=== PATIENT | female | born 1930 | race African-American/Black ===

== ENCOUNTER 2018-09-06 09:38 | Emergency (ER) | payer MEDICARE ==
[~2018-09-06] VITALS: Ht 162.6 cm; Wt 73.0 kg
[2018-09-06] MEDS ORDERED: IBUPROFEN 600MG TABLET PO ONE (10:15)
[2018-09-06] MEDS ORDERED: MORPHINE SULFATE 10 MG/ML CPJ IM ONE (13:00)
[2018-09-06] MEDS ORDERED: MORPHINE SULFATE 4 MG/ML CPJ (NOT FOR IM USE) IV ONE (15:45)
[2018-09-06 23:03] VITALS: BP 117/44
== END 2018-09-06 23:07 | disposition home or self-care (01) ==
LOC: ER 09:38
DX: S82.251A Displaced comminuted fracture of shaft of right tibia, initial encounter for closed fracture (principal); S30.0XXA Contusion of lower back and pelvis, initial encounter; I70.0 Atherosclerosis of aorta; E11.9 Type 2 diabetes mellitus without complications; I10 Essential (primary) hypertension; D64.9 Anemia, unspecified; M81.0 Age-related osteoporosis without current pathological fracture; W18.39XA Other fall on same level, initial encounter; Y93.89 Activity, other specified; Y92.89 Other specified places as the place of occurrence of the external cause; Y99.8 Other external cause status
CPT/HCPCS: 29505; 72192; 73502; 73560; 73600; 73610; 82962; 96372; 96374; 99284; J2270; Z7610

== ENCOUNTER 2021-04-13 18:11 | Inpatient (IN) | payer MEDICARE, MEDICAID ==
[~2021-04-13] VITALS: Ht 162.6 cm; Wt 71.2 kg
[2021-04-13] MEDS ORDERED: SODIUM CHLORIDE 0.9% 1000ML BAG (SEPSIS BOLUS) IV ONE (18:30)
[2021-04-13 19:12] LABS: BASOPHILS % 0.5 % (0.0-2.0); EOSINOPHILS % 0.6 % (0.0-5.0); HEMATOCRIT. 38.9 % (36.0-48.0); HEMOGLOBIN. 11.6 g/dL (12.0-16.0); LYMPHOCYTES % 40.4 % (20.0-50.0); MEAN CORPUSCULAR HEMOGLOBIN 27.3 pg (28.0-32.0); MEAN CORPUSCULAR VOLUME 91.6 fL (81.0-99.0); MEAN PLATELET VOLUME 7.5 fl (7.4-10.4); NEUTROPHILS % 56.5 % (40.0-76.0); PLATELET 360 x1000/uL (130-400); RED BLOOD CELL COUNT 4.25 mill/uL (4.2-5.4); RED CELL DISTRIBUTION WIDTH 16.7 % (11.6-14.6)
[2021-04-13 19:15] LABS: CHLORIDE 110 mEq/L (98-107)
[2021-04-13] MEDS ORDERED: PIPERACILLIN/TAZ 3.375G PREMIX 50 ML IV ONE (20:00)
[2021-04-13] MEDS ORDERED: VANCOMYCIN 1 G PREMIX 200 ML IV ONE (20:00)
[2021-04-13] MEDS ORDERED: SODIUM CHLORIDE 0.9% 1,000 ML IV ONE (20:15)
[2021-04-13] MEDS ORDERED: ACETAMINOPHEN 650MG SUPP PR ONE (20:15)
[2021-04-13 22:32] LABS: CLARITY URINE CLOUDY (CLEAR); COLOR URINE YELLOW (YELLOW); KETONES URINE NEGATIVE (NEGATIVE); LEUKOCYTE ESTERASE URINE TRACE (NEGATIVE); NITRITE URINE NEGATIVE (NEGATIVE); OCCULT BLOOD URINE 2+ (NEGATIVE); PROTEIN URINE 3+ (NEGATIVE); SPECIFIC GRAVITY URINE 1.025 (1.005-1.030); UROBILINOGEN URINE 0.2 E.U./dL (0.2-1.0)
[2021-04-13 22:53] LABS: BG BASE EXCESS -6.2 mmol/L (-2.0-2.0); BG DEOXYHEMOGLOBIN 0.8 % (0.0-5.0); BG FRACTION INSPIRED OXYGEN 44; BG HCO3 ACT 20.8 mmol/L (22.0-26.0); BG METHEMOGLOBIN 0.3 % (0.0-1.5); BG OXYGEN SATURATION 99.2 % (92.0-98.5); BG OXYHEMOGLOBIN 97.9 % (94.0-97.0); BG PCO2 47.7 mmHg (35.0-45.0); BG PH 7.258 (7.350-7.450); BG PO2 151.2 mmHg (75.0-100.0); BG SAMPLE SITE LEFT RADIAL; BG TOTAL HEMOGLOBIN 11.4 g/dL (12.0-18.0)
[2021-04-13] MEDS ORDERED: MAGNESIUM/ALUMINUM HYDROXIDE/SIMETHICONE 30ML UDC PO PRN (23:15)
[2021-04-13] MEDS ORDERED: HYDRALAZINE 20MG/ML VIAL IV PRN (23:15)
[2021-04-13] MEDS ORDERED: DIPHENHYDRAMINE 50MG/ML VIAL IV PRN (23:15)
[2021-04-13] MEDS ORDERED: ONDANSETRON HCL 4MG/2ML INJ IV PRN (23:15)
[2021-04-13] MEDS ORDERED: DEXTROSE 50% WATER 50ML SYRINGE IV PRN (23:15)
[2021-04-13] MEDS ORDERED: ACETAMINOPHEN 325MG TABLET PO PRN (23:15)
[2021-04-13] MEDS: SODIUM CHLORIDE 0.9% 1,000 ML IV SCH (23:15)
[2021-04-14] VITALS (12 sets, daily range): BP systolic 117–158; BP diastolic 56–123
[2021-04-14] MEDS ORDERED: IPRATROPIUM BROMIDE (0.02%) 0.5MG/2.5ML NEB HHN PRN (01:30)
[2021-04-14] MEDS ORDERED: LEVOFLOXACIN 500MG PREMIX 100 ML IV SCH (03:00)
[2021-04-14] MEDS: KETOROLAC 30MG/ML VIAL IV PRN ×2 (05:39→16:03)
[2021-04-14] MEDS: INSULIN LISPRO 100 UNITS/ML SUBCUT SCH ×4 (08:00→22:04)
[2021-04-14] MEDS: BLOOD SUGAR DIAGNOSTIC STRIP TEST SCH ×4 (08:17→21:38)
[2021-04-14] MEDS: ENOXAPARIN 40MG/0.4ML SYR SUBCUT SCH (08:34)
[2021-04-14] MEDS: ASPIRIN 81MG EC TABLET PO SCH (08:34)
[2021-04-14] MEDS: CHOLECALCIFEROL (D3) 1000 UNIT TABLET PO SCH (08:34)
[2021-04-14] MEDS: OMEPRAZOLE 20MG CAPSULE EXTENDED RELEASE PO SCH ×2 (08:35→21:00)
[2021-04-14] MEDS: BENAZEPRIL 10MG TABLET PO SCH (08:37)
[2021-04-14] MEDS ORDERED: MEROPENEM 1,000 MG in SODIUM CHLORIDE 0.9% 100 ML IV SCH ×2 (09:00)
[2021-04-14 10:19] LABS: CHLORIDE 114 mEq/L (98-107)
[2021-04-14 10:20] LABS: HEMATOCRIT. 32.2 % (36.0-48.0); HEMOGLOBIN. 9.8 g/dL (12.0-16.0); MEAN CORPUSCULAR VOLUME 88.5 fL (81.0-99.0); MEAN PLATELET VOLUME 7.7 fl (7.4-10.4); PLATELET 303 x1000/uL (130-400); RED BLOOD CELL COUNT 3.64 mill/uL (4.2-5.4); RED CELL DISTRIBUTION WIDTH 16.2 % (11.6-14.6)
[2021-04-14 10:26] LABS: PHOSPHORUS 2.7 mg/dL (2.5-4.9)
[2021-04-14 15:02] LABS: PLATELET ESTIMATE NORMAL
[2021-04-14] MEDS: IPRATROPIUM BROMIDE (0.02%) 0.5MG/2.5ML NEB HHN SCH ×2 (16:45→20:52)
[2021-04-14] MEDS: HYDRALAZINE 20MG/ML VIAL IV SCH (17:52)
[2021-04-14] MEDS ORDERED: VANCOMYCIN 1250MG in DEXTROSE 5% WATER 250ML IV NR (18:00)
[2021-04-14] MEDS: SODIUM CHLORIDE 0.9% 1,000 ML IV SCH (18:37)
[2021-04-14] MEDS: ATORVASTATIN CALCIUM 20MG TABLET PO SCH (21:00)
[2021-04-14] MEDS: MEROPENEM 1000MG in NORMAL SALINE 100ML IV SCH (21:37)
[2021-04-15] VITALS (10 sets, daily range): BP systolic 121–169; BP diastolic 51–89
[2021-04-15] MEDS: HYDRALAZINE 20MG/ML VIAL IV SCH ×4 (00:36→16:49)
[2021-04-15] MEDS: IPRATROPIUM BROMIDE (0.02%) 0.5MG/2.5ML NEB HHN SCH ×4 (02:31→20:49)
[2021-04-15] MEDS: LEVOFLOXACIN 250MG PREMIX 50 ML IV SCH (06:02)
[2021-04-15] MEDS: KETOROLAC 30MG/ML VIAL IV PRN (06:40)
[2021-04-15] MEDS: OMEPRAZOLE 20MG CAPSULE EXTENDED RELEASE PO SCH ×2 (07:30→21:00)
[2021-04-15] MEDS: BLOOD SUGAR DIAGNOSTIC STRIP TEST SCH ×4 (07:30→21:00)
[2021-04-15] MEDS: INSULIN LISPRO 100 UNITS/ML SUBCUT SCH ×4 (08:00→21:00)
[2021-04-15] MEDS: BENAZEPRIL 10MG TABLET PO SCH (09:00)
[2021-04-15] MEDS: ASPIRIN 81MG EC TABLET PO SCH (09:00)
[2021-04-15] MEDS: CHOLECALCIFEROL (D3) 1000 UNIT TABLET PO SCH (09:00)
[2021-04-15 09:21] LABS: BASOPHILS % 0.3 % (0.0-2.0); EOSINOPHILS % 0.1 % (0.0-5.0); HEMATOCRIT. 31.1 % (36.0-48.0); LYMPHOCYTES % 26.5 % (20.0-50.0); MEAN CORPUSCULAR HEMOGLOBIN 27.9 pg (28.0-32.0); MEAN CORPUSCULAR VOLUME 86.8 fL (81.0-99.0); MEAN PLATELET VOLUME 7.9 fl (7.4-10.4); MONOCYTES % 2.8 % (2.0-8.0); NEUTROPHILS % 70.3 % (40.0-76.0); PLATELET 281 x1000/uL (130-400); RED BLOOD CELL COUNT 3.59 mill/uL (4.2-5.4); RED CELL DISTRIBUTION WIDTH 16.3 % (11.6-14.6)
[2021-04-15 09:28] LABS: D-DIMER 2.38 mg/L FEU (<0.50); INR 1.1
[2021-04-15 09:31] LABS: CHLORIDE 118 mEq/L (98-107)
[2021-04-15] MEDS: ENOXAPARIN 40MG/0.4ML SYR SUBCUT SCH (10:54)
[2021-04-15] MEDS: MEROPENEM 1000MG in NORMAL SALINE 100ML IV SCH ×2 (10:56→22:34)
[2021-04-15] MEDS: SODIUM CHLORIDE 0.9% 1,000 ML IV SCH (15:15)
[2021-04-15] MEDS: VANCOMYCIN 1 G PREMIX 200 ML IV SCH (16:48)
[2021-04-15] MEDS: ATORVASTATIN CALCIUM 20MG TABLET PO SCH (21:00)
[2021-04-16] VITALS (12 sets, daily range): BP systolic 105–165; BP diastolic 61–89
[2021-04-16] MEDS: HYDRALAZINE 20MG/ML VIAL IV SCH ×4 (00:43→18:11)
[2021-04-16] MEDS: DEXT 5%/0.2% NACL 1,000 ML IV SCH ×2 (01:32→14:58)
[2021-04-16] MEDS: IPRATROPIUM BROMIDE (0.02%) 0.5MG/2.5ML NEB HHN SCH ×4 (02:05→21:05)
[2021-04-16] MEDS: LEVOFLOXACIN 250MG PREMIX 50 ML IV SCH (06:01)
[2021-04-16] MEDS: OMEPRAZOLE 20MG CAPSULE EXTENDED RELEASE PO SCH ×2 (07:30→20:49)
[2021-04-16] MEDS: BLOOD SUGAR DIAGNOSTIC STRIP TEST SCH ×4 (07:42→21:27)
[2021-04-16] MEDS: INSULIN LISPRO 100 UNITS/ML SUBCUT SCH ×4 (08:00→21:00)
[2021-04-16] MEDS: BENAZEPRIL 10MG TABLET PO SCH (09:00)
[2021-04-16] MEDS: ENOXAPARIN 40MG/0.4ML SYR SUBCUT SCH (09:00)
[2021-04-16] MEDS: ASPIRIN 81MG EC TABLET PO SCH (09:00)
[2021-04-16] MEDS: CHOLECALCIFEROL (D3) 1000 UNIT TABLET PO SCH (09:00)
[2021-04-16] MEDS: MEROPENEM 1000MG in NORMAL SALINE 100ML IV SCH ×2 (09:13→20:35)
[2021-04-16] MEDS ORDERED: DILTIAZEM HCL 5MG/ML 5ML VIAL IV SCH (10:00)
[2021-04-16 12:53] LABS: BASOPHILS % 0.5 % (0.0-2.0); EOSINOPHILS % 0.6 % (0.0-5.0); HEMATOCRIT. 32.3 % (36.0-48.0); HEMOGLOBIN. 10.1 g/dL (12.0-16.0); LYMPHOCYTES % 22.7 % (20.0-50.0); MEAN CORPUSCULAR HEMOGLOBIN 27.7 pg (28.0-32.0); MEAN PLATELET VOLUME 8.4 fl (7.4-10.4); MONOCYTES % 3.6 % (2.0-8.0); NEUTROPHILS % 72.6 % (40.0-76.0); PLATELET 279 x1000/uL (130-400); RED BLOOD CELL COUNT 3.65 mill/uL (4.2-5.4); RED CELL DISTRIBUTION WIDTH 17.3 % (11.6-14.6)
[2021-04-16 12:57] LABS: MEAN CORPUSCULAR VOLUME 88.6 fL (81.0-99.0)
[2021-04-16] MEDS: DILTIAZEM HCL 5MG/ML 5ML VIAL IV SCH ×2 (13:51→20:34)
[2021-04-16] MEDS: KETOROLAC 30MG/ML VIAL IV PRN (13:52)
[2021-04-16] MEDS: VANCOMYCIN 1 G PREMIX 200 ML IV SCH (18:11)
[2021-04-16 18:52] LABS: BG BASE EXCESS -1.1 mmol/L (-2.0-2.0); BG CARBOXYHEMOGLOBIN 0.3 % (0.5-1.5); BG DEOXYHEMOGLOBIN 0.3 % (0.0-5.0); BG FRACTION INSPIRED OXYGEN 100; BG HCO3 ACT 23.5 mmol/L (22.0-26.0); BG METHEMOGLOBIN 0.3 % (0.0-1.5); BG OXYGEN SATURATION 99.7 % (92.0-98.5); BG OXYHEMOGLOBIN 99.1 % (94.0-97.0); BG PCO2 38.6 mmHg (35.0-45.0); BG PH 7.402 (7.350-7.450); BG PO2 558.3 mmHg (75.0-100.0); BG SAMPLE SITE RIGHT RADIAL; BG TOTAL HEMOGLOBIN 9.9 g/dL (12.0-18.0); BG VENT MODE MASK - BIPAP
[2021-04-16 19:51] LABS: TOTAL IRON BINDING CAPACITY 376 ug/dL (250-450)
[2021-04-16 20:11] LABS: FOLIC ACID (FOLATE) SERUM 8.1 ng/mL (>5.38)
[2021-04-16] MEDS: ATORVASTATIN CALCIUM 20MG TABLET PO SCH (20:37)
[2021-04-16] MEDS: GUAIFENESIN 600MG ER TABLET PO SCH (21:05)
[2021-04-16] MEDS: ACETYLCYSTEINE 100MG/ML 10% VIAL 4ML INH SCH (21:50)
[2021-04-17] VITALS (11 sets, daily range): BP systolic 103–154; BP diastolic 33–110
[2021-04-17] MEDS: HYDRALAZINE 20MG/ML VIAL IV SCH ×3 (00:01→13:05)
[2021-04-17] MEDS: ACETYLCYSTEINE 100MG/ML 10% VIAL 4ML INH SCH ×3 (00:58→13:52)
[2021-04-17] MEDS: IPRATROPIUM BROMIDE (0.02%) 0.5MG/2.5ML NEB HHN SCH ×4 (00:58→21:06)
[2021-04-17] MEDS: DILTIAZEM HCL 5MG/ML 5ML VIAL IV SCH ×3 (05:23→13:04)
[2021-04-17 07:17] LABS: HEMATOCRIT. 32.6 % (36.0-48.0); HEMOGLOBIN. 10.6 g/dL (12.0-16.0); MEAN CORPUSCULAR HEMOGLOBIN 28.8 pg (28.0-32.0); MEAN CORPUSCULAR VOLUME 88.9 fL (81.0-99.0); MEAN PLATELET VOLUME 8.8 fl (7.4-10.4); PLATELET 261 x1000/uL (130-400); RED BLOOD CELL COUNT 3.67 mill/uL (4.2-5.4); RED CELL DISTRIBUTION WIDTH 17.4 % (11.6-14.6)
[2021-04-17 07:55] LABS: CHLORIDE 117 mEq/L (98-107)
[2021-04-17] MEDS: BLOOD SUGAR DIAGNOSTIC STRIP TEST SCH ×4 (07:56→20:54)
[2021-04-17 08:04] LABS: CREATINE KINASE 110 IU/L (26-192); T4 FREE 1.42 ng/dL (0.76-1.46)
[2021-04-17] MEDS: DEXT 5%/0.2% NACL 1,000 ML IV SCH (08:33)
[2021-04-17] MEDS: KETOROLAC 30MG/ML VIAL IV PRN ×3 (08:34→20:03)
[2021-04-17] MEDS: OMEPRAZOLE 20MG CAPSULE EXTENDED RELEASE PO SCH ×3 (08:34→21:00)
[2021-04-17] MEDS: BENAZEPRIL 10MG TABLET PO SCH (08:35)
[2021-04-17] MEDS: CHOLECALCIFEROL (D3) 1000 UNIT TABLET PO SCH (08:35)
[2021-04-17] MEDS ORDERED: LIDOCAINE HCL 1% 10 MG/ML 10ML VIAL ONE (08:35)
[2021-04-17] MEDS: MEROPENEM 1000MG in NORMAL SALINE 100ML IV SCH (10:12)
[2021-04-17] MEDS: ASPIRIN 81MG EC TABLET PO SCH (10:16)
[2021-04-17] MEDS: INSULIN LISPRO 100 UNITS/ML SUBCUT SCH ×4 (10:16→21:00)
[2021-04-17] MEDS: GUAIFENESIN 600MG ER TABLET PO SCH ×3 (10:16→21:00)
[2021-04-17] MEDS: ENOXAPARIN 40MG/0.4ML SYR SUBCUT SCH (10:17)
[2021-04-17] MEDS ORDERED: VANCOMYCIN 750 MG PREMIX 150 ML IV SCH (14:00)
[2021-04-17] MEDS: DILTIAZEM HCL 60MG TABLET NG SCH ×2 (17:13→23:09)
[2021-04-17] MEDS: CEFEPIME 1,000 MG in DEXTROSE 5% WATER 50 ML IV SCH (20:53)
[2021-04-17] MEDS: METRONIDAZOLE 500MG TABLET PO SCH (20:53)
[2021-04-17] MEDS: ATORVASTATIN CALCIUM 20MG TABLET PO SCH (20:54)
[2021-04-17 20:59] LABS: PLATELET ESTIMATE NORMAL
[2021-04-18] VITALS (12 sets, daily range): BP systolic 104–143; BP diastolic 54–87
[2021-04-18] MEDS: ACETYLCYSTEINE 100MG/ML 10% VIAL 4ML INH SCH ×4 (01:58→21:02)
[2021-04-18] MEDS: IPRATROPIUM BROMIDE (0.02%) 0.5MG/2.5ML NEB HHN SCH ×4 (01:58→21:02)
[2021-04-18] MEDS: KETOROLAC 30MG/ML VIAL IV PRN ×4 (02:14→17:40)
[2021-04-18] MEDS: DEXT 5%/0.2% NACL 1,000 ML IV SCH (02:15)
[2021-04-18] MEDS: DILTIAZEM HCL 60MG TABLET NG SCH ×4 (05:26→23:58)
[2021-04-18 06:43] LABS: BASOPHILS % 0.3 % (0.0-2.0); HEMATOCRIT. 27.9 % (36.0-48.0); HEMOGLOBIN. 8.9 g/dL (12.0-16.0); LYMPHOCYTES % 32.8 % (20.0-50.0); MEAN CORPUSCULAR HEMOGLOBIN 27.4 pg (28.0-32.0); MEAN CORPUSCULAR VOLUME 85.5 fL (81.0-99.0); MEAN PLATELET VOLUME 8.7 fl (7.4-10.4); MONOCYTES % 5.9 % (2.0-8.0); PLATELET 239 x1000/uL (130-400); RED BLOOD CELL COUNT 3.26 mill/uL (4.2-5.4); RED CELL DISTRIBUTION WIDTH 16.1 % (11.6-14.6)
[2021-04-18 06:56] LABS: CHLORIDE 114 mEq/L (98-107)
[2021-04-18] MEDS: LANSOPRAZOLE 30MG DR CAPSULE GT SCH (07:36)
[2021-04-18] MEDS: GUAIFENESIN 200MG/10ML SUGAR FREE UDC GT SCH ×5 (07:36→22:49)
[2021-04-18] MEDS: INSULIN LISPRO 100 UNITS/ML SUBCUT SCH ×4 (07:36→20:33)
[2021-04-18] MEDS: BLOOD SUGAR DIAGNOSTIC STRIP TEST SCH ×4 (07:36→20:32)
[2021-04-18] MEDS: CEFEPIME 1,000 MG in DEXTROSE 5% WATER 50 ML IV SCH ×2 (09:06→20:23)
[2021-04-18] MEDS: ENOXAPARIN 40MG/0.4ML SYR SUBCUT SCH (09:07)
[2021-04-18] MEDS: BENAZEPRIL 10MG TABLET NG SCH (09:07)
[2021-04-18] MEDS: CHOLECALCIFEROL (D3) 1000 UNIT TABLET PO SCH (09:08)
[2021-04-18] MEDS: METRONIDAZOLE 500MG TABLET PO SCH ×2 (09:08→20:22)
[2021-04-18] MEDS: ASPIRIN 81MG EC TABLET PO SCH (09:08)
[2021-04-18] MEDS: ATORVASTATIN CALCIUM 20MG TABLET PO SCH (20:22)
[2021-04-19] VITALS (12 sets, daily range): BP systolic 99–155; BP diastolic 43–92
[2021-04-19] MEDS: IPRATROPIUM BROMIDE (0.02%) 0.5MG/2.5ML NEB HHN SCH ×4 (00:41→20:50)
[2021-04-19] MEDS: DEXT 5%/0.2% NACL 1,000 ML IV SCH ×2 (01:11→20:24)
[2021-04-19] MEDS: ACETAMINOPHEN 325MG TABLET PO PRN ×2 (02:06→20:25)
[2021-04-19] MEDS: GUAIFENESIN 200MG/10ML SUGAR FREE UDC GT SCH ×6 (02:06→23:49)
[2021-04-19] MEDS: DILTIAZEM HCL 60MG TABLET NG SCH ×4 (06:01→23:50)
[2021-04-19] MEDS: CEFEPIME 1,000 MG in DEXTROSE 5% WATER 50 ML IV SCH ×2 (08:08→20:25)
[2021-04-19] MEDS: LANSOPRAZOLE 30MG DR CAPSULE GT SCH (08:08)
[2021-04-19] MEDS: METRONIDAZOLE 500MG TABLET PO SCH ×2 (08:08→20:24)
[2021-04-19] MEDS: ASPIRIN 81MG EC TABLET PO SCH (08:08)
[2021-04-19] MEDS: CHOLECALCIFEROL (D3) 1000 UNIT TABLET PO SCH (08:08)
[2021-04-19] MEDS: ENOXAPARIN 40MG/0.4ML SYR SUBCUT SCH (08:09)
[2021-04-19] MEDS: BENAZEPRIL 10MG TABLET NG SCH (08:09)
[2021-04-19] MEDS: INSULIN LISPRO 100 UNITS/ML SUBCUT SCH ×4 (08:10→22:00)
[2021-04-19] MEDS: BLOOD SUGAR DIAGNOSTIC STRIP TEST SCH ×4 (08:10→21:00)
[2021-04-19] MEDS: ACETYLCYSTEINE 100MG/ML 10% VIAL 4ML INH SCH ×2 (08:51→16:00)
[2021-04-19 09:37] LABS: BASOPHILS % 0.5 % (0.0-2.0); EOSINOPHILS % 3.4 % (0.0-5.0); HEMATOCRIT. 26.7 % (36.0-48.0); HEMOGLOBIN. 8.8 g/dL (12.0-16.0); LYMPHOCYTES % 35.9 % (20.0-50.0); MEAN CORPUSCULAR HEMOGLOBIN 28.1 pg (28.0-32.0); MEAN CORPUSCULAR VOLUME 85.3 fL (81.0-99.0); MEAN PLATELET VOLUME 8.5 fl (7.4-10.4); MONOCYTES % 6.9 % (2.0-8.0); NEUTROPHILS % 53.3 % (40.0-76.0); PLATELET 223 x1000/uL (130-400); RED BLOOD CELL COUNT 3.13 mill/uL (4.2-5.4); RED CELL DISTRIBUTION WIDTH 16.1 % (11.6-14.6)
[2021-04-19 09:47] LABS: CHLORIDE 111 mEq/L (98-107)
[2021-04-19] MEDS ORDERED: CEFAZOLIN 1000MG PREMIX 50 ML IV NR (16:30)
[2021-04-19 16:34] LABS: INR 1.1; PROTHROMBIN TIME 11.9 sec (9.6-11.0)
[2021-04-19] MEDS: CARVEDILOL 12.5MG TABLET NG SCH (20:25)
[2021-04-19] MEDS: ATORVASTATIN CALCIUM 20MG TABLET PO SCH (20:25)
[2021-04-20] VITALS (13 sets, daily range): BP systolic 101–165; BP diastolic 43–81
[2021-04-20] MEDS: IPRATROPIUM BROMIDE (0.02%) 0.5MG/2.5ML NEB HHN SCH ×4 (01:14→20:47)
[2021-04-20] MEDS: ACETYLCYSTEINE 100MG/ML 10% VIAL 4ML INH SCH ×4 (01:17→20:47)
[2021-04-20] MEDS: GUAIFENESIN 200MG/10ML SUGAR FREE UDC GT SCH ×6 (03:00→23:10)
[2021-04-20] MEDS: DILTIAZEM HCL 60MG TABLET NG SCH ×4 (06:00→23:11)
[2021-04-20 07:16] LABS: HEMOGLOBIN. 8.4 g/dL (12.0-16.0); MEAN CORPUSCULAR HEMOGLOBIN 28.6 pg (28.0-32.0); MEAN CORPUSCULAR VOLUME 85.3 fL (81.0-99.0); RED BLOOD CELL COUNT 2.93 mill/uL (4.2-5.4); RED CELL DISTRIBUTION WIDTH 16.2 % (11.6-14.6)
[2021-04-20] MEDS: LANSOPRAZOLE 30MG DR CAPSULE GT SCH (07:30)
[2021-04-20 07:57] LABS: CHLORIDE 109 mEq/L (98-107)
[2021-04-20] MEDS: INSULIN LISPRO 100 UNITS/ML SUBCUT SCH ×4 (08:00→21:39)
[2021-04-20] MEDS: BLOOD SUGAR DIAGNOSTIC STRIP TEST SCH ×4 (08:05→21:37)
[2021-04-20] MEDS: ASPIRIN 81MG EC TABLET PO SCH (09:00)
[2021-04-20] MEDS: METRONIDAZOLE 500MG TABLET PO SCH ×2 (09:00→20:21)
[2021-04-20] MEDS: ENOXAPARIN 40MG/0.4ML SYR SUBCUT SCH (09:00)
[2021-04-20] MEDS: CHOLECALCIFEROL (D3) 1000 UNIT TABLET PO SCH (09:00)
[2021-04-20] MEDS: BENAZEPRIL 10MG TABLET NG SCH (09:00)
[2021-04-20] MEDS: CEFEPIME 1,000 MG in DEXTROSE 5% WATER 50 ML IV SCH ×2 (09:27→20:21)
[2021-04-20] MEDS: CARVEDILOL 12.5MG TABLET NG SCH ×2 (09:27→20:22)
[2021-04-20 10:26] LABS: PLATELET 203 x1000/uL (130-400)
[2021-04-20 10:33] LABS: PLATELET ESTIMATE NORMAL
[2021-04-20] MEDS: DEXT 5%/0.2% NACL 1,000 ML IV SCH (12:58)
[2021-04-20] MEDS: ACETAMINOPHEN 325MG TABLET PO PRN (15:52)
[2021-04-20] MEDS: ATORVASTATIN CALCIUM 20MG TABLET PO SCH (20:21)
[2021-04-21] VITALS (12 sets, daily range): BP systolic 95–166; BP diastolic 47–80
[2021-04-21] MEDS: IPRATROPIUM BROMIDE (0.02%) 0.5MG/2.5ML NEB HHN SCH ×4 (02:16→20:13)
[2021-04-21] MEDS: GUAIFENESIN 200MG/10ML SUGAR FREE UDC GT SCH ×5 (02:48→20:55)
[2021-04-21] MEDS: DILTIAZEM HCL 60MG TABLET NG SCH ×3 (05:18→17:56)
[2021-04-21] MEDS: BLOOD SUGAR DIAGNOSTIC STRIP TEST SCH ×4 (07:30→20:56)
[2021-04-21] MEDS: ACETYLCYSTEINE 100MG/ML 10% VIAL 4ML INH SCH ×2 (08:05→14:57)
[2021-04-21] MEDS: ENOXAPARIN 40MG/0.4ML SYR SUBCUT SCH (09:00)
[2021-04-21] MEDS: ASPIRIN 81MG EC TABLET PO SCH (09:15)
[2021-04-21] MEDS: DEXT 5%/0.2% NACL 1,000 ML IV SCH (09:15)
[2021-04-21] MEDS: CEFEPIME 1,000 MG in DEXTROSE 5% WATER 50 ML IV SCH ×2 (09:15→20:55)
[2021-04-21] MEDS: LANSOPRAZOLE 30MG DR CAPSULE GT SCH (09:16)
[2021-04-21] MEDS: METRONIDAZOLE 500MG TABLET PO SCH ×2 (09:16→20:56)
[2021-04-21] MEDS: CARVEDILOL 12.5MG TABLET NG SCH ×2 (09:16→20:55)
[2021-04-21] MEDS: CHOLECALCIFEROL (D3) 1000 UNIT TABLET PO SCH (09:16)
[2021-04-21] MEDS: INSULIN LISPRO 100 UNITS/ML SUBCUT SCH ×4 (09:18→20:57)
[2021-04-21] MEDS: BENAZEPRIL 10MG TABLET NG SCH (09:22)
[2021-04-21] MEDS: ACETAMINOPHEN 325MG TABLET PO PRN (18:47)
[2021-04-21] MEDS: ATORVASTATIN CALCIUM 20MG TABLET PO SCH (20:56)
[2021-04-22] VITALS (12 sets, daily range): BP systolic 93–142; BP diastolic 34–75
[2021-04-22] MEDS: GUAIFENESIN 200MG/10ML SUGAR FREE UDC GT SCH ×7 (00:50→23:40)
[2021-04-22] MEDS: DILTIAZEM HCL 60MG TABLET NG SCH ×5 (00:51→23:41)
[2021-04-22] MEDS: IPRATROPIUM BROMIDE (0.02%) 0.5MG/2.5ML NEB HHN SCH ×4 (02:12→20:43)
[2021-04-22] MEDS: DEXT 5%/0.2% NACL 1,000 ML IV SCH (03:58)
[2021-04-22] MEDS: ACETAMINOPHEN 325MG TABLET PO PRN ×3 (05:32→21:21)
[2021-04-22] MEDS: BLOOD SUGAR DIAGNOSTIC STRIP TEST SCH ×4 (07:46→21:16)
[2021-04-22] MEDS: LANSOPRAZOLE 30MG DR CAPSULE GT SCH (07:49)
[2021-04-22] MEDS: CEFEPIME 1,000 MG in DEXTROSE 5% WATER 50 ML IV SCH (08:17)
[2021-04-22] MEDS: CHOLECALCIFEROL (D3) 1000 UNIT TABLET PO SCH (08:17)
[2021-04-22] MEDS: ASPIRIN 81MG EC TABLET PO SCH (08:18)
[2021-04-22] MEDS: CARVEDILOL 12.5MG TABLET NG SCH ×2 (08:18→21:16)
[2021-04-22] MEDS: BENAZEPRIL 10MG TABLET NG SCH (08:18)
[2021-04-22] MEDS: METRONIDAZOLE 500MG TABLET PO SCH ×2 (08:18→21:16)
[2021-04-22] MEDS: ENOXAPARIN 40MG/0.4ML SYR SUBCUT SCH (08:19)
[2021-04-22] MEDS: INSULIN LISPRO 100 UNITS/ML SUBCUT SCH ×4 (08:20→21:17)
[2021-04-22] MEDS: ATORVASTATIN CALCIUM 20MG TABLET PO SCH (21:16)
[2021-04-23] VITALS (12 sets, daily range): BP systolic 115–159; BP diastolic 25–93
[2021-04-23] MEDS: DEXT 5%/0.2% NACL 1,000 ML IV SCH ×2 (02:03→20:55)
[2021-04-23] MEDS: IPRATROPIUM BROMIDE (0.02%) 0.5MG/2.5ML NEB HHN SCH ×4 (02:18→20:08)
[2021-04-23] MEDS: GUAIFENESIN 200MG/10ML SUGAR FREE UDC GT SCH ×6 (03:47→22:51)
[2021-04-23] MEDS: ACETAMINOPHEN 325MG TABLET PO PRN (05:50)
[2021-04-23] MEDS: DILTIAZEM HCL 60MG TABLET NG SCH ×4 (05:50→23:24)
[2021-04-23] MEDS: BLOOD SUGAR DIAGNOSTIC STRIP TEST SCH ×4 (07:54→20:55)
[2021-04-23] MEDS: LANSOPRAZOLE 30MG DR CAPSULE GT SCH (08:06)
[2021-04-23] MEDS: ASPIRIN 81MG EC TABLET PO SCH (08:06)
[2021-04-23] MEDS: CHOLECALCIFEROL (D3) 1000 UNIT TABLET PO SCH (08:06)
[2021-04-23] MEDS: CARVEDILOL 12.5MG TABLET NG SCH ×2 (08:07→20:54)
[2021-04-23] MEDS: BENAZEPRIL 10MG TABLET NG SCH (08:07)
[2021-04-23] MEDS: INSULIN LISPRO 100 UNITS/ML SUBCUT SCH ×4 (08:08→20:55)
[2021-04-23] MEDS: ENOXAPARIN 40MG/0.4ML SYR SUBCUT SCH (08:08)
[2021-04-23 08:19] LABS: BG BASE EXCESS -4.7 mmol/L (-2.0-2.0); BG CARBOXYHEMOGLOBIN 0.8 % (0.5-1.5); BG DEOXYHEMOGLOBIN 1.2 % (0.0-5.0); BG FRACTION INSPIRED OXYGEN 30; BG HCO3 ACT 20.1 mmol/L (22.0-26.0); BG METHEMOGLOBIN 0.3 % (0.0-1.5); BG OXYGEN SATURATION 98.8 % (92.0-98.5); BG OXYHEMOGLOBIN 97.7 % (94.0-97.0); BG PCO2 35.9 mmHg (35.0-45.0); BG PH 7.367 (7.350-7.450); BG PO2 112.6 mmHg (75.0-100.0); BG SAMPLE SITE RIGHT RADIAL; BG TOTAL HEMOGLOBIN 8.8 g/dL (12.0-18.0); BG TOTAL RESPIRATORY RATE 23 b/min; BG VENT MODE MASK - BIPAP
[2021-04-23 15:46] LABS: BG BASE EXCESS -4.1 mmol/L (-2.0-2.0); BG CARBOXYHEMOGLOBIN 0.9 % (0.5-1.5); BG DEOXYHEMOGLOBIN 1.2 % (0.0-5.0); BG FRACTION INSPIRED OXYGEN 32; BG HCO3 ACT 21.1 mmol/L (22.0-26.0); BG METHEMOGLOBIN 0.3 % (0.0-1.5); BG OXYGEN SATURATION 98.8 % (92.0-98.5); BG OXYHEMOGLOBIN 97.6 % (94.0-97.0); BG PCO2 38.8 mmHg (35.0-45.0); BG PH 7.353 (7.350-7.450); BG PO2 117.3 mmHg (75.0-100.0); BG SAMPLE SITE RIGHT RADIAL; BG TOTAL HEMOGLOBIN 8.6 g/dL (12.0-18.0); BG VENT MODE NASAL CANNULA
[2021-04-23 17:29] LABS: INR 1.1; PROTHROMBIN TIME 11.9 sec (9.6-11.0)
[2021-04-23 17:36] LABS: CHLORIDE 106 mEq/L (98-107)
[2021-04-23] MEDS: ATORVASTATIN CALCIUM 20MG TABLET PO SCH (20:54)
[2021-04-24] VITALS (13 sets, daily range): BP systolic 104–167; BP diastolic 52–88
[2021-04-24] MEDS: GUAIFENESIN 200MG/10ML SUGAR FREE UDC GT SCH ×6 (02:33→23:36)
[2021-04-24] MEDS: IPRATROPIUM BROMIDE (0.02%) 0.5MG/2.5ML NEB HHN SCH ×4 (02:33→20:52)
[2021-04-24] MEDS: ACETAMINOPHEN 325MG TABLET PO PRN ×3 (02:46→17:18)
[2021-04-24] MEDS: DILTIAZEM HCL 60MG TABLET NG SCH ×4 (05:03→23:37)
[2021-04-24 06:42] LABS: CHLORIDE 105 mEq/L (98-107)
[2021-04-24] MEDS: BLOOD SUGAR DIAGNOSTIC STRIP TEST SCH ×4 (07:30→20:47)
[2021-04-24] MEDS: LANSOPRAZOLE 30MG DR CAPSULE GT SCH (08:29)
[2021-04-24] MEDS: BENAZEPRIL 10MG TABLET NG SCH (08:29)
[2021-04-24] MEDS: ASPIRIN 81MG EC TABLET PO SCH (08:30)
[2021-04-24] MEDS: CARVEDILOL 12.5MG TABLET NG SCH ×2 (08:30→20:47)
[2021-04-24] MEDS: CHOLECALCIFEROL (D3) 1000 UNIT TABLET PO SCH (08:30)
[2021-04-24] MEDS: ENOXAPARIN 40MG/0.4ML SYR SUBCUT SCH (08:31)
[2021-04-24] MEDS: INSULIN LISPRO 100 UNITS/ML SUBCUT SCH ×4 (08:32→21:01)
[2021-04-24 09:11] LABS: BASOPHILS % 0.5 % (0.0-2.0); EOSINOPHILS % 2.2 % (0.0-5.0); HEMATOCRIT. 24.3 % (36.0-48.0); HEMOGLOBIN. 7.8 g/dL (12.0-16.0); LYMPHOCYTES % 27.7 % (20.0-50.0); MEAN CORPUSCULAR HEMOGLOBIN 27.9 pg (28.0-32.0); MEAN CORPUSCULAR VOLUME 86.6 fL (81.0-99.0); MEAN PLATELET VOLUME 8.2 fl (7.4-10.4); MONOCYTES % 5.9 % (2.0-8.0); NEUTROPHILS % 63.7 % (40.0-76.0); PLATELET 353 x1000/uL (130-400); RED BLOOD CELL COUNT 2.81 mill/uL (4.2-5.4); RED CELL DISTRIBUTION WIDTH 16.8 % (11.6-14.6)
[2021-04-24] MEDS: CLONIDINE 0.1MG TABLET PO PRN ×2 (13:11→17:20)
[2021-04-24] MEDS: DEXT 5%/0.2% NACL 1,000 ML IV SCH (15:47)
[2021-04-24] MEDS ORDERED: SORBITOL 70% SOLN 30ML NG NR (17:00)
[2021-04-24] MEDS ORDERED: SODIUM POLYSTYRENE SULFONATE 15 G/60 ML BOT NG NR (18:30)
[2021-04-24] MEDS ORDERED: NALOXONE HCL 0.4MG/ML VIAL IV PRN (19:00)
[2021-04-24] MEDS ORDERED: TRAMADOL 50MG TABLET PO PRN (19:00)
[2021-04-24] MEDS: ATORVASTATIN CALCIUM 20MG TABLET PO SCH (20:47)
[2021-04-25] VITALS (16 sets, daily range): BP systolic 108–188; BP diastolic 43–123
[2021-04-25] MEDS: IPRATROPIUM BROMIDE (0.02%) 0.5MG/2.5ML NEB HHN SCH ×4 (00:31→20:19)
[2021-04-25] MEDS: GUAIFENESIN 200MG/10ML SUGAR FREE UDC GT SCH ×6 (03:02→23:45)
[2021-04-25] MEDS: DILTIAZEM HCL 60MG TABLET NG SCH ×3 (06:06→17:01)
[2021-04-25 06:26] LABS: BASOPHILS % 0.3 % (0.0-2.0); HEMATOCRIT. 23.5 % (36.0-48.0); HEMOGLOBIN. 7.6 g/dL (12.0-16.0); LYMPHOCYTES % 26.6 % (20.0-50.0); MEAN CORPUSCULAR HEMOGLOBIN 27.7 pg (28.0-32.0); MEAN CORPUSCULAR VOLUME 85.6 fL (81.0-99.0); MEAN PLATELET VOLUME 8.2 fl (7.4-10.4); MONOCYTES % 5.9 % (2.0-8.0); NEUTROPHILS % 65.2 % (40.0-76.0); PLATELET 361 x1000/uL (130-400); RED BLOOD CELL COUNT 2.75 mill/uL (4.2-5.4); RED CELL DISTRIBUTION WIDTH 16.1 % (11.6-14.6)
[2021-04-25] MEDS: BLOOD SUGAR DIAGNOSTIC STRIP TEST SCH ×4 (07:41→21:20)
[2021-04-25 08:20] LABS: CHLORIDE 107 mEq/L (98-107)
[2021-04-25] MEDS: ASPIRIN 81MG EC TABLET PO SCH (09:08)
[2021-04-25] MEDS: LANSOPRAZOLE 30MG DR CAPSULE GT SCH (09:08)
[2021-04-25] MEDS: CHOLECALCIFEROL (D3) 1000 UNIT TABLET PO SCH (09:08)
[2021-04-25] MEDS: CARVEDILOL 12.5MG TABLET NG SCH ×2 (09:09→21:20)
[2021-04-25] MEDS: BENAZEPRIL 10MG TABLET NG SCH (09:13)
[2021-04-25] MEDS: INSULIN LISPRO 100 UNITS/ML SUBCUT SCH ×4 (09:14→21:47)
[2021-04-25] MEDS: DEXT 5%/0.2% NACL 1,000 ML IV SCH (11:43)
[2021-04-25] MEDS: CLONIDINE 0.1MG TABLET PO PRN (20:41)
[2021-04-25] MEDS: ATORVASTATIN CALCIUM 20MG TABLET PO SCH (21:20)
[2021-04-25 23:52] LABS: HEMATOCRIT 29.9 % (36.0-48.0); HEMOGLOBIN 9.7 g/dL (12.0-16.0)
[2021-04-26] VITALS (12 sets, daily range): BP systolic 89–212; BP diastolic 47–95
[2021-04-26] MEDS: DILTIAZEM HCL 60MG TABLET NG SCH ×5 (00:46→23:46)
[2021-04-26] MEDS: IPRATROPIUM BROMIDE (0.02%) 0.5MG/2.5ML NEB HHN SCH ×4 (01:21→23:38)
[2021-04-26] MEDS: GUAIFENESIN 200MG/10ML SUGAR FREE UDC GT SCH ×6 (03:50→22:27)
[2021-04-26] MEDS: BLOOD SUGAR DIAGNOSTIC STRIP TEST SCH ×4 (07:24→21:38)
[2021-04-26] MEDS: INSULIN LISPRO 100 UNITS/ML SUBCUT SCH ×4 (07:44→21:43)
[2021-04-26] MEDS: ACETAMINOPHEN 325MG TABLET PO PRN (07:44)
[2021-04-26] MEDS: LANSOPRAZOLE 30MG DR CAPSULE GT SCH (08:27)
[2021-04-26] MEDS: ASPIRIN 81MG EC TABLET PO SCH (08:27)
[2021-04-26] MEDS: BENAZEPRIL 10MG TABLET NG SCH (08:28)
[2021-04-26] MEDS: CHOLECALCIFEROL (D3) 1000 UNIT TABLET PO SCH (08:28)
[2021-04-26] MEDS: CARVEDILOL 12.5MG TABLET NG SCH ×2 (08:28→21:43)
[2021-04-26] MEDS: DEXT 5%/0.2% NACL 1,000 ML IV SCH (14:37)
[2021-04-26] MEDS ORDERED: CEFAZOLIN 1000MG PREMIX 50 ML IV NR (15:00)
[2021-04-26] MEDS: PANTOPRAZOLE SODIUM 40 MG/VIAL IV SCH ×2 (21:00→21:42)
[2021-04-26] MEDS: ATORVASTATIN CALCIUM 20MG TABLET PO SCH (21:43)
[2021-04-26] MEDS: CLONIDINE 0.1MG TABLET PO PRN (22:22)
[2021-04-27] VITALS (12 sets, daily range): BP systolic 105–190; BP diastolic 26–94
[2021-04-27] MEDS: DEXT 5%/0.2% NACL 1,000 ML IV SCH (02:43)
[2021-04-27] MEDS: GUAIFENESIN 200MG/10ML SUGAR FREE UDC GT SCH ×4 (03:00→18:16)
[2021-04-27 05:59] LABS: BASOPHILS % 0.3 % (0.0-2.0); EOSINOPHILS % 0.6 % (0.0-5.0); HEMATOCRIT. 27.1 % (36.0-48.0); HEMOGLOBIN. 8.9 g/dL (12.0-16.0); LYMPHOCYTES % 19.1 % (20.0-50.0); MEAN CORPUSCULAR HEMOGLOBIN 28.3 pg (28.0-32.0); MEAN CORPUSCULAR VOLUME 86.6 fL (81.0-99.0); MONOCYTES % 5.1 % (2.0-8.0); NEUTROPHILS % 74.9 % (40.0-76.0); PLATELET 390 x1000/uL (130-400); RED BLOOD CELL COUNT 3.13 mill/uL (4.2-5.4); RED CELL DISTRIBUTION WIDTH 16.5 % (11.6-14.6)
[2021-04-27 06:07] LABS: INR 1.1; PROTHROMBIN TIME 11.4 sec (9.6-11.0)
[2021-04-27 06:19] LABS: CHLORIDE 104 mEq/L (98-107)
[2021-04-27] MEDS: BLOOD SUGAR DIAGNOSTIC STRIP TEST SCH ×3 (07:30→17:30)
[2021-04-27] MEDS: INSULIN LISPRO 100 UNITS/ML SUBCUT SCH ×3 (08:00→18:00)
[2021-04-27] MEDS ORDERED: SODIUM BICARBONATE 8.4% 1 MEQ/ML 50ML SYR IV ONE (08:42)
[2021-04-27] MEDS ORDERED: CALCIUM CHLORIDE 1GM/10ML SYR IV ONE (08:42)
[2021-04-27] MEDS ORDERED: ATROPINE SULFATE 1MG/10ML SYR ONE (08:42)
[2021-04-27] MEDS ORDERED: AMIODARONE HCL 50MG/ML 3ML VIAL IV ONE (08:42)
[2021-04-27] MEDS ORDERED: EPINEPHRINE 0.1MG/ML (1:10,000) 10ML SYR ONE (08:42)
[2021-04-27] MEDS: AMLODIPINE 5MG TABLET PO SCH ×2 (09:00→12:42)
[2021-04-27] MEDS: CHOLECALCIFEROL (D3) 1000 UNIT TABLET PO SCH (09:00)
[2021-04-27] MEDS: PANTOPRAZOLE SODIUM 40 MG/VIAL IV SCH (09:00)
[2021-04-27] MEDS: BENAZEPRIL 10MG TABLET NG SCH ×2 (09:00→12:41)
[2021-04-27] MEDS: CARVEDILOL 12.5MG TABLET NG SCH ×2 (09:00→12:42)
[2021-04-27] MEDS: IPRATROPIUM BROMIDE (0.02%) 0.5MG/2.5ML NEB HHN SCH ×2 (10:01→16:16)
[2021-04-27] MEDS ORDERED: SODIUM POLYSTYRENE SULFONATE 15 G/60 ML BOT NG NR (10:30)
[2021-04-27] MEDS ORDERED: CEFAZOLIN SODIUM 1000MG/VIAL IV ONE (13:00)
[2021-04-27] MEDS ORDERED: MIDAZOLAM HCL 5 MG/5 ML VIAL ONE (15:01)
[2021-04-27] MEDS ORDERED: FENTANYL CITRATE/PF 50MCG/ML 2ML VIAL ONE (15:01)
[2021-04-27] MEDS ORDERED: MIDAZOLAM HCL 5 MG/5 ML VIAL IV PRN (15:08)
[2021-04-27] MEDS ORDERED: FENTANYL CITRATE/PF 50MCG/ML 2ML VIAL IV PRN (15:09)
[2021-04-27] MEDS ORDERED: SODIUM POLYSTYRENE SULFONATE 15 G/60 ML BOT PEG NR (17:00)
[2021-04-27] MEDS ORDERED: GUAIFENESIN 200MG/10ML SUGAR FREE UDC GT SCH (20:00)
[2021-04-27] MEDS ORDERED: HYDRALAZINE HCL 25MG TABLET PEG SCH (22:00)
== END 2021-04-27 20:52 | DRG 720 ==
LOC: ER 18:11 → 5EST 20:28 → ENRESERV 22:32
PROVIDERS: ADMIT Internal Medicine; ATTEND Internal Medicine
PROC: 5A09357 Assistance with Respiratory Ventilation, Less than 24 Consecutive Hours, Continuous Positive Airway Pressure (ICD-10-PCS; 2021-04-16)
PROC: 5A09357 Assistance with Respiratory Ventilation, Less than 24 Consecutive Hours, Continuous Positive Airway Pressure (ICD-10-PCS; 2021-04-17)
PROC: B54MZZA Ultrasonography of Right Upper Extremity Veins, Guidance (ICD-10-PCS; 2021-04-17)
PROC: 05HY33Z Insertion of Infusion Device into Upper Vein, Percutaneous Approach (ICD-10-PCS; 2021-04-17)
PROC: 5A09357 Assistance with Respiratory Ventilation, Less than 24 Consecutive Hours, Continuous Positive Airway Pressure (ICD-10-PCS; 2021-04-18)
PROC: 5A09457 Assistance with Respiratory Ventilation, 24-96 Consecutive Hours, Continuous Positive Airway Pressure (ICD-10-PCS; 2021-04-21)
PROC: 5A09357 Assistance with Respiratory Ventilation, Less than 24 Consecutive Hours, Continuous Positive Airway Pressure (ICD-10-PCS; 2021-04-22)
PROC: 5A09357 Assistance with Respiratory Ventilation, Less than 24 Consecutive Hours, Continuous Positive Airway Pressure (ICD-10-PCS; 2021-04-24)
PROC: 30233N1 Transfusion of Nonautologous Red Blood Cells into Peripheral Vein, Percutaneous Approach (ICD-10-PCS; 2021-04-25)
PROC: 0DH63UZ Insertion of Feeding Device into Stomach, Percutaneous Approach (ICD-10-PCS; principal; 2021-04-27)
PROC: 5A12012 Performance of Cardiac Output, Single, Manual (ICD-10-PCS; 2021-04-27)
PROC: 0BH17EZ Insertion of Endotracheal Airway into Trachea, Via Natural or Artificial Opening (ICD-10-PCS; 2021-04-27)
PROC: 5A2204Z Restoration of Cardiac Rhythm, Single (ICD-10-PCS; 2021-04-27)
PROC: B54BZZA Ultrasonography of Right Lower Extremity Veins, Guidance (ICD-10-PCS; 2021-04-27)
PROC: 06HY33Z Insertion of Infusion Device into Lower Vein, Percutaneous Approach (ICD-10-PCS; 2021-04-27)
PROC: 5A19054 Respiratory Ventilation, Single, Nonmechanical (ICD-10-PCS; 2021-04-27)
DX: A41.1 Sepsis due to other specified staphylococcus (principal); J96.01 Acute respiratory failure with hypoxia; G93.41 Metabolic encephalopathy; E43 Unspecified severe protein-calorie malnutrition; I27.20 Pulmonary hypertension, unspecified; N17.9 Acute kidney failure, unspecified; I82.B11 Acute embolism and thrombosis of right subclavian vein; H70.92 Unspecified mastoiditis, left ear; R47.01 Aphasia; J18.9 Pneumonia, unspecified organism; F03.90 Unspecified dementia, unspecified severity, without behavioral disturbance, psychotic disturbance, mood disturbance, and anxiety; I11.0 Hypertensive heart disease with heart failure; I50.9 Heart failure, unspecified; I49.01 Ventricular fibrillation; I46.9 Cardiac arrest, cause unspecified; R62.7 Adult failure to thrive; D50.9 Iron deficiency anemia, unspecified; E11.9 Type 2 diabetes mellitus without complications; I48.91 Unspecified atrial fibrillation; K21.9 Gastro-esophageal reflux disease without esophagitis; M06.9 Rheumatoid arthritis, unspecified; M81.0 Age-related osteoporosis without current pathological fracture; Z60.2 Problems related to living alone; N39.0 Urinary tract infection, site not specified; E87.5 Hyperkalemia; G40.909 Epilepsy, unspecified, not intractable, without status epilepticus; I34.0 Nonrheumatic mitral (valve) insufficiency; Z20.822 Contact with and (suspected) exposure to COVID-19; R13.12 Dysphagia, oropharyngeal phase; T82.868A Thrombosis due to vascular prosthetic devices, implants and grafts, initial encounter; Y84.8 Other medical procedures as the cause of abnormal reaction of the patient, or of later complication, without mention of misadventure at the time of the procedure; Y92.238 Other place in hospital as the place of occurrence of the external cause; Z86.718 Personal history of other venous thrombosis and embolism; Z90.710 Acquired absence of both cervix and uterus; Z79.82 Long term (current) use of aspirin; Z74.01 Bed confinement status; Z68.26 Body mass index [BMI] 26.0-26.9, adult; T17.918A Gastric contents in respiratory tract, part unspecified causing other injury, initial encounter
CPT/HCPCS: 31500; 36415; 36600; 71045; 71250; 74176; 76937; 78580; 80048; 80053; 80202; 81003; 82270; 82375; 82550; 82607; 82728; 82746; 82805; 82962; 83540; 83550; 83605; 83880; 84100; 84132; 84145; 84439; 84443; 84484; 85014; 85018; 85025; 85379; 86850; 86900; 86920; 87426; 92610; 93005; 93306; 93970; 93971; 94640; 94660; 94667; 97161; 99291; C1725; C1893; C9113; J0282; J0360; J0461; J0690; J0692; J1650; J1815; J1885; J1956; J2185; J2250; J2543; J3010; J3370; J3490; J7030; J7050; J7060; J7608; P9016; U0003; U0005